=== PATIENT | female | born 1970 | race Two or more races ===

== ENCOUNTER 2019-03-25 02:59 | Emergency (ER) | payer MEDICAID ==
[~2019-03-25] VITALS: Ht 167.6 cm; Wt 63.6 kg
[~2019-03-25 02:59] MED LIST: PREN1COM14
[2019-03-25] MEDS ORDERED: RISP0.252 PO (03:08)
[2019-03-25] MEDS ORDERED: SERT25TA PO (03:08)
[2019-03-25] MEDS ORDERED: MIRT15 PO (03:09)
[2019-03-25] MEDS ORDERED: KETOROLAC TROMETHAMINE 60 MG/2 ML VIAL IM ONE (03:45)
[2019-03-25 04:22] LABS: BASOPHILS % (AUTO) 1.1 % (0.0-2.0); EOSINOPHILS % (AUTO) 1.2 % (1.0-6.0); HEMATOCRIT 26.6 % (36-46); HEMOGLOBIN 8.4 g/dL (12.0-16.0); LYMPHOCYTES # (AUTO) 1.7 K/uL (1.0-4.8); LYMPHOCYTES % (AUTO) 29.9 % (22.0-44.0); MEAN CORPUSCULAR HEMOGLOBIN 23.1 pg (26.0-34.0); MEAN CORPUSCULAR HGB CONC 31.5 G/dL (31.0-37.0); MEAN CORPUSCULAR VOLUME 73 fL (80-100); MONOCYTES # (AUTO) 0.6 K/uL (0.1-1.0); MONOCYTES % (AUTO) 10.7 % (2.0-9.0); NEUTROPHILS # (AUTO) 3.2 K/uL (1.8-7.7); NEUTROPHILS % (AUTO) 57.1 % (40.0-70.0); PLATELET COUNT (AUTO) 347 K/uL (150-450); RED BLOOD CELL COUNT(AUTO) 3.63 MIL/uL (4.00-5.20); RED CELL DISTRIBUTION WIDTH 22.1 % (11.5-14.5)
[2019-03-25 05:03] VITALS: BP 122/78
== END 2019-03-25 05:30 | disposition home or self-care (01) ==
LOC: EMS 03:02
DX: S90.31XA Contusion of right foot, initial encounter (principal); D64.9 Anemia, unspecified; F15.10 Other stimulant abuse, uncomplicated; W57.XXXA Bitten or stung by nonvenomous insect and other nonvenomous arthropods, initial encounter; Y93.89 Activity, other specified; Y92.89 Other specified places as the place of occurrence of the external cause; Y99.8 Other external cause status
CPT/HCPCS: 36415; 84702; 85025; 93971; 96372; 99284; J1885

== ENCOUNTER 2019-07-24 18:33 | Emergency (ER) | payer OTHER ==
[~2019-07-24 18:33] MED LIST changes: +MIRT15 PO; +RISP0.252 PO; +SERT25TA PO
== END 2019-07-24 18:42 | disposition left against medical advice (07) ==
LOC: EMS 18:34
DX: S91.319A Laceration without foreign body, unspecified foot, initial encounter (principal); W45.8XXA Other foreign body or object entering through skin, initial encounter; Y93.89 Activity, other specified; Y92.89 Other specified places as the place of occurrence of the external cause; Y99.8 Other external cause status; Z53.21 Procedure and treatment not carried out due to patient leaving prior to being seen by health care provider

== ENCOUNTER 2019-09-28 08:03 | Emergency (ER) | payer OTHER ==
[~2019-09-28] VITALS: Ht 167.6 cm; Wt 59.0 kg
[2019-09-28 10:48] LABS: BASOPHILS % (AUTO) 0.7 % (0.0-2.0); EOSINOPHILS % (AUTO) 0.5 % (1.0-6.0); HEMATOCRIT 35.9 % (36-46); HEMOGLOBIN 11.7 g/dL (12.0-16.0); LYMPHOCYTES # (AUTO) 1.2 K/uL (1.0-4.8); LYMPHOCYTES % (AUTO) 19.2 % (22.0-44.0); MEAN CORPUSCULAR HEMOGLOBIN 25.4 pg (26.0-34.0); MEAN CORPUSCULAR HGB CONC 32.6 G/dL (31.0-37.0); MEAN CORPUSCULAR VOLUME 78 fL (80-100); MONOCYTES # (AUTO) 0.5 K/uL (0.1-1.0); MONOCYTES % (AUTO) 7.5 % (2.0-9.0); NEUTROPHILS # (AUTO) 4.4 K/uL (1.8-7.7); NEUTROPHILS % (AUTO) 72.1 % (40.0-70.0); PLATELET COUNT (AUTO) 327 K/uL (150-450); RED CELL DISTRIBUTION WIDTH 23.5 % (11.5-14.5)
[2019-09-28 11:02] LABS: ANION GAP 7 mmol/L (8-16); CALCIUM, TOTAL 8.6 mg/dL (8.8-10.5); CARBON DIOXIDE 28 mmol/L (22-29); CHLORIDE 102 mmol/L (98-107); CREATININE 0.71 mg/dL (0.60-1.30); GLOMERULAR FILTR. RATE CALC > 60 mL/min (>60); GLUCOSE,RANDOM 98 mg/dL (70-110); SODIUM SERUM 137 mmol/L (136-145)
[2019-09-28 11:16] LABS: ALANINE AMINOTRANSFERASE 46 U/L (12-78); ALBUMIN 3.4 g/dL (3.4-5.0); ALKALINE PHOSPHATASE 111 U/L (46-116); ASPARTATE AMINOTRANSFERASE 86 U/L (15-37); BILIRUBIN,TOTAL 0.3 mg/dL (0.1-1.0); HCG,QUANTITATIVE < 1 mIU/mL (0-6); TOTAL PROTEIN, SERUM 7.9 g/dL (6.4-8.2)
[2019-09-28 11:23] LABS: UREA NITROGEN, BLOOD 10 mg/dL (7-18)
[2019-09-28 12:02] VITALS: BP 135/76
== END 2019-09-28 13:17 | disposition home or self-care (01) ==
LOC: EMS 08:05
DX: S10.83XA Contusion of other specified part of neck, initial encounter (principal); F15.10 Other stimulant abuse, uncomplicated; F32.9 Major depressive disorder, single episode, unspecified; Z59.0 Homelessness; Z79.899 Other long term (current) drug therapy; W22.8XXA Striking against or struck by other objects, initial encounter; Y93.89 Activity, other specified; Y92.89 Other specified places as the place of occurrence of the external cause; Y99.8 Other external cause status
CPT/HCPCS: 36415; 70450; 80053; 84702; 85025; 99284; G0480

== ENCOUNTER 2022-04-19 01:41 | Emergency (ER) | payer MEDICAID, OTHER ==
[~2022-04-19] VITALS: Ht 165.1 cm; Wt 61.4 kg
[~2022-04-19 01:41] MED LIST changes: +MIRT-89 PO; -MIRT15 PO; -PREN1COM14; -RISP0.252 PO
[2022-04-19 02:15] VITALS: BP 132/88
[2022-04-19] MEDS ORDERED: ACETAMINOPHEN 500 MG TABLET PO ONE (02:45)
== END 2022-04-19 03:13 | disposition home or self-care (01) ==
LOC: EMS 01:41
DX: R51.9 Headache, unspecified (principal); F15.90 Other stimulant use, unspecified, uncomplicated; Z79.899 Other long term (current) drug therapy
CPT/HCPCS: 99283